=== PATIENT | male | born 1995 | race Caucasian/White ===

== ENCOUNTER 2017-01-13 03:14 | Emergency (ER) | payer BC ==
--- NOTE | 2017-01-13 03:37 | ERNOTE ---
Chest Pain/Cardiac HPI Chief Complaint: Chest Pain Time Seen by Provider: 01/13/17 03:28 Source: patient Exam Limitations: no limitations Immunizations: IMMUNIZATION HX Immunizations Up to Date Yes History of Influenza Vaccine Yes Hx Pneumococcal Vaccination No Allergies/Adverse Reactions: Allergies No Known Drug Allergies Allergy (Verified 01/13/17 03:33) Home Medications: HOME MEDICATIONS NK [No Home Medication] 01/13/17 [Last Taken Unknown] Narrative: pt was sleeping and was awakened by chest pressure and shortness of breath Timing: constant Severity/Quality: moderate Location: substernal Chest Pain Radiation: no radiation Activities at Onset: sleep Associated Symptoms: Present: shortness of breath, diaphoresis Review of Systems - Review of Systems Constitutional: Present: chills, diaphoresis. Absent: recent illness, fever EYE: Present: no symptoms reported ENT: Present: no symptoms reported Respiratory: Present: shortness of breath. Absent: cough Cardiology: Present: See HPI. Absent: edema Gastrointestinal/Abdominal: Present: abdominal pain - after he drank some water and before going to bed Genitourinary: Present: no symptoms reported Musculoskeletal: Absent: back pain, muscle pain Skin: Present: lesions - insect bite on the back of his neck onset mid-day yesterday Neurological: Present: numbness, tingling - of arms Endocrine: Present: excessive sweating, flushing Hematologic/Lymphatic: Present: no symptoms reported Psych: Present: no symptoms reported - Patient's Past Medical History Patient History - Medical: No pertinent hx Patient History - Cardiac/Respiratory: No pertinent hx Patient History - Cancer: No Hx of Cancer Patient History - Surgical Procedures: No surgical history Patient History - Other: None - Social History Living Situations: home Abuse History: No History of abuse Psych History: No pertinent hx Smoking Status: Never smoker Have you smoked in the past 12 months: No Do you dip or chew tobacco: No Alcohol Use: occasionally Drug Use: none - Immunizations Immunizations Up to Date: Yes Hx Pneumococcal Vaccination: No History of Influenza Vaccine: Yes Physical Exam - Physical Exam General Appearance: Present: wd/wn, alert, no apparent distress Head Exam: Present: normal inspection, no evidence of injury Eye Exam: Normal inspection: bilateral, PERRL: bilateral, EOMI: bilateral Ears, Nose, Throat: Present: normal ENT inspection, normal pharynx Neck: Present: normal inspection, nontender, supple, full range of motion Respiratory: Present: no respiratory distress, normal breath sounds, no accessory muscle use, lungs clear Cardiovascular/Chest: Present: regular rate, rhythm, no murmur, normal peripheral pulses Gastrointestinal/Abdominal: Present: normal bowel sounds, nontender, nondistended, soft Extremity Exam: Present: normal inspection, non-tender, normal range of motion, no edema Neurological Exam: Present: alert, oriented, normal mood/affect, no motor/ sensory deficits Skin Exam: Present: normal color, warm/dry Lymphatic Exam: Present: no adenopathy ED Progress - Results and Orders Patient's Lab Results:: I have reviewed the patient's lab results. Results and Orders: Laboratory Tests 01/13/17 01/13/17 03:28 03:28 WBC 6.4 Hgb 14.4 Hct 42.4 Plt Count 227 Sodium 139 Potassium 3.4 Chloride 103 Carbon Dioxide 27.1 Anion Gap 12.3 BUN 20 Creatinine 1.37 Est GFR (Non-Af Amer) 69 BUN/Creatinine Ratio 14.6 Random Glucose 117 H Calcium 9.0 Total Bilirubin 0.5 AST 11 ALT 23 Alkaline Phosphatase 68 Troponin I Less than 0.017 Total Protein 7.5 Albumin 4.2 - Vital Signs Patient's Vital Signs:: I have reviewed the patient's vital signs. Vital Signs: Vital Signs 01/13/17 03:17 Temperature 36.8 C Pulse Rate 91 Respiratory 14 Rate Blood Pressure 157/78 - EKG EKG: NSR, no ST T wave changes EKG read: Interp. by me - X-Ray X-Ray #1 X-Ray: chest Interpretation: Interp. by me X-ray Comments: No acute changes. No infiltrate or effusion. moderate gas in stomach and colon noted. - Progress/Reassessment Chief Complaint: Chest Pain Progress:: Improved Progress Note-Subjective: 01/13/17 04:36 pt states he is better but still has some minor chest discomfort and tingling in his hands 01/13/17 05:07 much improved after GI coctail Departure - Departure Clinical Impression: Esophageal spasm Disposition: Home self-care Condition: Good Instructions: Esophageal Spasm Additional Instructions: you might try heartburn medications (zantac or pepcid) or gas-x if your symptoms return. See your regular doctor if they don't work, return to the ER as needed
[2017-01-13 03:53] LABS: Hematocrit 42.4 % (42.0-52.0); Hemoglobin 14.4 gm/dL (13.5-18.0); Mean Cell Volume 86.7 fl (78-100); Mean Corpuscular Hemoglobin 29.4 pg (27-31); Mean Platelet Volume 10.4 fl (6.0-9.5); Neutrophil # 2.7 K/mm3 (1.3-6.0); Neutrophil % 42.5 % (42-75.0); Platelet Count 227 K/mm3 (150-450); Red Blood Count 4.89 M/mm3 (4.7-6.0); Red Cell Distribution Width 12.4 % (11.5-14.0); White Blood Count 6.4 K/mm3 (4.0-10.5)
[2017-01-13 04:13] LABS: ALT 23 U/L (19-67); AST 11 U/L (0-48); Albumin * 4.2 gm/dl (3.4-5.0); Alkaline Phosphatase * 68 U/L (50-170); Anion Gap 12.3 mmol/L (6.8-13.8); BUN/Creatinine Ratio 14.6 (9.0-21.6); Bilirubin, Total 0.5 mg/dL (0.0-1.1); Blood Urea Nitrogen 20 mg/dL (6-23); Ca. Corrected For Albumin 8.5 mg/dL (8.4-10.2); Carbon Dioxide 27.1 mmol/L (24-32.6); Chloride 103 mmol/L (97-106); Glucose * 117 mg/dL (70-110); Potassium 3.4 mmol/L (3.4-4.6); Sodium 139 mmol/L (132-142); Total Protein 7.5 gm/dL (6.2-8.2)
[2017-01-13 04:14] LABS: Troponin I Less than 0.017 ng/ml (0.00-0.10)
[2017-01-13] MEDS ORDERED: SUCRALFATE 1 G/10 ML UDC PO ONE (04:33)
[2017-01-13] MEDS ORDERED: LIDOCAINE HCL 20 ML UDC PO ONE (04:33)
[2017-01-13] MEDS ORDERED: MAG HYDROX/ALUMINUM HYD/SIMETH 30 ML UDC PO ONE (04:33)
[2017-01-13 04:58] VITALS: BP 132/81
== END 2017-01-13 05:09 | disposition home or self-care (01) ==
LOC: ER 03:14
DX: K22.4 Dyskinesia of esophagus (principal)